=== PATIENT | female | born 1975 ===

== ENCOUNTER 2018-06-21 17:14 | Emergency (ER) | payer BC, OTHER ==
[2018-06-21 17:25] VITALS: BMI 28.3
[2018-06-21 17:30] VITALS: BP 118/87; PULSE 81; RESP 18; TEMP 97.6; O2SAT 98
--- NOTE | 2018-06-21 18:11 | ED PDOC ---
Arrival/HPI - General Historian: Patient - History of Present Illness Narrative History of Present Illness (Text): 06/21/18 18:03 Patient is a 42 year old female with past medical history of hypertension presenting with chief complaint of chest discomfort which started two hours prior to arrival at ED. Pain is located in left anterior chest wall, intermittent, and not associated with dyspnea or diaphoresis. Denies any aggravation in pain with positional changes. Denies trauma or any strenuous activity. She also admits to nausea, neck discomfort and an odd sensation in her tongue. Denies fevers, chills, vomiting, abdominal pain, diarrhea, dysuria. 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 <Gwyn Danielle - Last Filed: 06/21/18 20:01> <Tana White - Last Filed: 06/22/18 07:10> - General Chief Complaint: Back Pain Time Seen by Provider: 06/21/18 17:38 Past Medical History - Provider Review Nursing Documentation Reviewed: Yes - Infectious Disease Hx of Infectious Diseases: None - Past Medical History Past Medical History: No Previous - Neurological Hx Migraine: Yes Hx Transient Ischemic Attacks (TIA): Yes - Psychiatric Hx Emotional Abuse: No Hx Physical Abuse: No Hx Substance Use: No - Surgical History Hx Section: Yes Hx Dilation and Curettage: Yes Hx Orthopedic Surgery: Yes (left Rotator cuff) - Anesthesia Hx Anesthesia: Yes Hx Anesthesia Reactions: No Hx Malignant Hyperthermia: No - Suicidal Assessment Feels Threatened In Home Enviroment: No <Gwyn Danielle - Last Filed: 06/21/18 20:01> Family/Social History - Physician Review Nursing Documentation Reviewed: Yes Family/Social History: No Known Family HX Smoking Status: Never Smoked Hx Alcohol Use: No Hx Substance Use: No <Gwyn Danielle - Last Filed: 06/21/18 20:01> Allergies/Home Meds <Gwyn Danielle - Last Filed: 06/21/18 20:01> <Tana White - Last Filed: 06/22/18 07:10> Allergies/Adverse Reactions: Allergies acetaminophen [From Percocet] Adverse Reaction (Verified 06/21/18 17:25) ITCHING codeine Adverse Reaction (Verified 06/21/18 17:25) ITCHING oxycodone HCl [From Percocet] Adverse Reaction (Verified 06/21/18 17:25) ITCHING Home Medications: Home Meds Medication Instructions Recorded Confirmed No Known Home Med 11/27/15 11/27/15 Review of Systems - Physician Review All systems were reviewed & negative as marked: Yes - Review of Systems Cardiovascular: Chest Pain Gastrointestinal: Nausea. absent: Abdominal Pain, Stool Changes, Constipation, Diarrhea, Vomiting Genitourinary Female: Normal Neurological: Normal <Gwyn Danielle - Last Filed: 06/21/18 20:01> Physical Exam Vital Signs Reviewed: Yes Vital Signs Temp Pulse Resp BP Pulse Ox 06/21/18 17:25 97.6 F 81 18 118/87 98 Temperature: Afebrile Blood Pressure: Normal Pulse: Regular Respiratory Rate: Normal Appearance: Positive for: Well-Appearing, Comfortable Pain Distress: None Mental Status: Positive for: Alert and Oriented X 3 - Systems Exam Head: Present: Atraumatic, Normocephalic Pupils: Present: PERRL Extroacular Muscles: Present: EOMI Conjunctiva: Present: Normal Mouth: Present: Moist Mucous Membranes Respiratory/Chest: Present: Clear to Auscultation, Good Air Exchange, Tender to Palpation. No: Respiratory Distress, Accessory Muscle Use Cardiovascular: Present: Regular Rate and Rhythm, Normal S1, S2. No: Murmurs Abdomen: Present: Normal Bowel Sounds. No: Tenderness, Distention, Peritoneal Signs Lower Extremity: Present: Normal Inspection. No: Edema Neurological: Present: GCS=15, CN II-XII Intact, Speech Normal Skin: Present: Warm, Dry, Normal Color. No: Rashes Psychiatric: Present: Alert, Oriented x 3, Normal Insight, Normal Concentration <Gwyn Danielle L - Last Filed: 06/21/18 20:01> Vital Signs Temp Pulse Resp BP Pulse Ox 06/21/18 17:25 97.6 F 81 18 118/87 98 <Tana White - Last Filed: 06/22/18 07:10> Medical Decision Making ED Course and Treatment: 06/21/18 18:13 Impression: 42 year old female with chest discomfort Plan: - CBC, CMP, Mg - EKG, cardiac ISO - Toradol - Aspirin - Reassess and disposition Prior Visits: Notes and results from previous visits were reviewed. Progress Notes: 06/21/18 20:01 Labs and imaging reviewed. Patient reports improvement in symptoms. Patient optimized for discharge and follow up with primary medical doctor. Patient in agreement with plan of management. - Lab Interpretations I have reviewed the lab results: Yes - RAD Interpretation Radiology Orders: 06/21/18 17:52 CXR [CHEST PORTABLE] [RAD] Stat - EKG Interpretation EKG Interpretation (Text): 06/21/18 20:01 NSR Interpreted by ED Physician: Yes Type: 12 lead EKG - Medication Orders Current Medication Orders: Aspirin (Aspirin) 325 mg PO STAT STA Stop: 06/21/18 18:03 Ketorolac Tromethamine (Toradol) 30 mg IVP STAT STA Stop: 06/21/18 18:03 <Gwyn Danielle - Last Filed: 06/21/18 20:01> ED Course and Treatment: 06/21/18 18:29 Patient Seen with Resident: In agreement with resident note which contains more details about the patient. Patient seen and evaluated with resident. Came up with plan and treatment toget her. Impression: 42 year old female complaining of chest discomfort that started approximately 2 hours prior to arrival. 06/21/18 18:30 - RAD Interpretation Narrative RAD Interpretations (Text): 06/21/18 19:37 CXR: No acute disease noted Radiology Orders: 06/21/18 17:52 CXR [CHEST PORTABLE] [RAD] Stat Pay Station Collector: ED Physician - Medication Orders Current Medication Orders: Discontinued Medications Aspirin (Aspirin) 325 mg PO STAT STA Stop: 06/21/18 18:03 Ketorolac Tromethamine (Toradol) 30 mg IVP STAT STA Stop: 06/21/18 18:03 <Tana White - Last Filed: 06/22/18 07:10> - Scribe Statement The provider has reviewed the documentation as recorded by the Scribe Martín Valenzuela Provider Scribe Attestation: All medical record entries made by the Scribe were at my direction and personally dictated by me. I have reviewed the chart and agree that the record accurately reflects my personal performance of the history, physical exam, medical decision making, and the department course for this patient. I have also personally directed, reviewed, and agree with the discharge instructions and disposition. <Tana White - Last Filed: 06/22/18 07:10> Disposition/Present on Arrival - Present on Arrival Any Indicators Present on Arrival: No History of DVT/PE: No History of Uncontrolled Diabetes: No Urinary Catheter: No History of Decub. Ulcer: No History Surgical Site Infection Following: None - Disposition Have Diagnosis and Disposition been Completed?: Yes Disposition Time: 19:57 <Gwyn Danielle - Last Filed: 06/21/18 20:01> <Tana White - Last Filed: 06/22/18 07:10> - Disposition Diagnosis: Atypical chest pain Disposition: HOME/ ROUTINE Condition: STABLE Discharge Instructions (ExitCare): Chest Pain That Is Not Caused by the Heart (DC), Chest Pain (ED) Additional Instructions: Follow up with your primary medical doctor within one week Resume your home medications as prescribed Return to ED if symptoms return or worsen Forms: [employer] (Slovak)
[2018-06-21 19:26] LABS: BASO # 0.01 K/mm3 (0.0-2.0); BASO % 0.1 % (0.0-3.0); EOS # 0.1 (0.0-0.7); EOS % 0.8 % (1.5-5.0); HEMOGLOBIN 12.5 g/dL (12.0-16.0); LYMPH # 2.7 (1.2-3.4); LYMPH % 21.3 % (22.0-35.0); MEAN CELL VOLUME 75.7 fl (80.0-105.0); MEAN CORPUSCULAR HEMOGLOBIN 23.3 pg (25.0-35.0); MEAN CORPUSCULAR HGB CONC 30.8 g/dl (31.0-37.0); MEAN PLATELET VOLUME 9.7 fl (7.0-11.0); MONO # 0.7 (0.1-0.6); MONO % 5.6 % (1.0-6.0); RBC 5.36 10^6/uL (3.5-6.1); RED CELL DISTRIBUTION WIDTH 14.7 % (11.5-14.5); WHITE BLOOD COUNT 12.6 10^3/uL (4.5-11.0)
[2018-06-21 19:38] LABS: ALB/GLOB RATIO 1.2 (1.1-1.8); ALBUMIN 4.4 g/dL (3.0-4.8); ALT/SGPT 16 U/L (7-56); AST/SGOT 29 U/L (14-36); BLOOD UREA NITROGEN 11 mg/dL (7-21); CALCIUM 9.2 mg/dL (8.4-10.5); GFR NON-AFRICAN AMERICAN > 60
[2018-06-21 19:49] LABS: TROPONIN I < 0.01 ng/mL
--- NOTE | 2018-06-22 08:52 | RAD ---
Date of service: 06/21/2018 HISTORY: chest discomfort COMPARISON: 11/27/2015 TECHNIQUE: 1 view obtained. FINDINGS: LUNGS: No active pulmonary disease. PLEURA: No significant pleural effusion identified, no pneumothorax apparent. CARDIOVASCULAR: No aortic atherosclerotic calcification present. Normal cardiac size. No pulmonary vascular congestion. OSSEOUS STRUCTURES: No significant abnormalities. VISUALIZED UPPER ABDOMEN: Normal. OTHER FINDINGS: None. IMPRESSION: No active disease.
--- NOTE | 2018-06-22 09:18 | CARD ---
APPROVED REPORT Date of service: 06/21/2018 EKG Measurement Heart [id number] <Conclusion> Normal sinus rhythm Normal ECG
== END 2018-06-21 20:32 | disposition home or self-care (01) ==
LOC: ED 17:14
DX: R07.89 Other chest pain (principal); I10 Essential (primary) hypertension; Z86.73 Personal history of transient ischemic attack (TIA), and cerebral infarction without residual deficits
CPT/HCPCS: 71045; 80053; 81025; 82550; 83615; 83735; 84484; 85025; 93005; 96374; 99283; J1885